=== PATIENT | male | born 1960 | race Caucasian/White ===

== ENCOUNTER 2019-01-19 12:37 | Emergency (ER) | payer MEDICAID, SELFPAY ==
[2019-01-19] VITALS (48 sets, daily range): BP systolic 121–202; BP diastolic 94–122; PULSE 57–85; RESP 10–22; TEMP 36.9; O2SAT 96–99
--- NOTE | 2019-01-19 13:02 | ED.GENADUL_ITS ---
Discharge Plan Disposition Patient Disposition: HOME Condition: Improving Discharge Details Chief Complaint: Chest Pain Clinical Impression: Hypertension, Atypical chest pain Primary Care Provider: Edyta Dee ED Provider: Patrice Panda Home Meds and New Rx's Prescriptions: No Action No Known Home Meds RF: 0 Discharge Instructions Instructions: Chest Pain (ED), Hypertension (ED) Additional Instructions: Please check your blood pressure at the same time of day in the outpatient setting as we discussed. Please call make an appointment to follow-up with Dr. Dee. You should limit daily sodium intake to between 1159-8106 mg/day. Please see enclosed information on low-sodium. Please consider decreasing your alcohol intake by 50%. Return for any acute concerns. Home to rest today Medical Decision Making 58-year-old male presents from home with his stating he has had 3 days of left-sided chest pain that radiates the back. It is constant, worse lying flat, but denies any association with shortness of breath, peripheral edema, no recent travel. He arrives with significant hypertension 194/105. Improved to 165/95 on recheck approximately 330pm. Her sinus is broad including ACS, PE, dissection. Patient placed on quality assurance monitor chassis, referred for laboratory testing and CT angiogram of the chest abdomen and pelvis. Patient laboratories are essentially unremarkable, troponin is negative and CBC within normal limits. CT without evidence of PE, dissection. He is observed on a quality assurance monitor chassis for approximately 4 hours and repeat troponin obtained & Patient's pain improved following administration of ketorolac. Patient states he has a history of hypertension, has trialed medications in the past and currently refuses to take regular antihypertensives. Discussed with him that he would benefit from decreasing his daily alcohol use, watching salt in the diet, and following up with Dr Dee for recheck. Lab Data Lab results reviewed: Yes I reviewed the patient's lab results. Laboratory Results - last 24 hr 01/19/19 01/19/19 01/19/19 13:02 13:02 13:02 WBC 7.88 RBC 4.88 Hgb 16.2 Hct 46.8 MCV 95.9 H MCH 33.2 H MCHC 34.6 RDW 13.1 Plt Count 200 MPV 11.3 H Immature Gran % 0.1 Neutrophils % 68.9 Lymphocytes % 16.1 Monocytes % 11.0 Eosinophils % 3.3 Basophils % 0.6 Absolute Neutrophils 5.42 Absolute Lymphocytes 1.27 Absolute Monocytes 0.87 H Absolute Eosinophils 0.26 Absolute Basophils 0.05 PT 9.7 INR 1.0 APTT 23.5 Sodium 138 Potassium 3.9 Chloride 104 Carbon Dioxide 24.2 Anion Gap 9.8 BUN 12 Creatinine 0.96 Estimated GFR/1.73 m2 >= 60.00 Glucose 102 H Calcium 9.3 Magnesium 1.8 Total Bilirubin 0.5 AST 22 ALT 33 Alkaline Phosphatase 102 Troponin I < 0.05 Total Protein 7.6 Albumin 4.0 ECG Data Attestation: I personally reviewed and interpreted this ECG (s) as follows: Interpretation: Normal sinus rhythm, no acute ST segment changes, QRS is narrow EKG #2 obtained at 1628 hrs. shows normal sinus rhythm with a rate of 61, the QRS is narrow, there is no ST segment elevation present HPI General Mode of arrival: ambulatory . Date/Time Provider Initiated Documentation: 01/19/19 12:48 . Limitations to Documentation: no limitations . Information obtained by: patient and family . History of Present Illness 58 yea r old M presents to the emergency department with the chief complaint of Left chest pain constant for 3 days, described as moderate, Quality is described as dull and constant, and is localized to the chest. Patient reports radiation to back. Patient started experiencing this day(s) and it has been constant. No relieving factors improve symptom(s), No exacerbating factors reported . Patient notes no other symptoms.; denies cough, fever/chills, headaches, nausea/vomiting and shortness of breath. Patient did receive the following treatments prior to arrival, none Related Data Home Medications Medication Instructions Recorded Confirmed Unknown [No Known Home Meds] 01/19/19 01/19/19 Allergies Allergy/AdvReac Type Severity Reaction Status Date / Time No Known Allergies Allergy Unverified 01/19/19 13:28 General Stated Complaint: Chest Pain LOY: 2 Review of Systems Review of Systems 8 systems reviewed and otherwise neg FORMERLY [facility], [facility] Social History Smoking/Tobacco Use Status: Current every day Alcohol Intake: current Alcohol Intake frequency: 0-2 drinks per day Drug use: Daily Substance use type: marijuana Do you feel safe at home: Yes Do you feel safe in your relationship?: Yes Exam Narrative Exam Narrative: GEN: awake, alert, oriented 3. Pleasant, well groomed, interactive. HEAD: Normocephalic, atraumatic ENT: Mucous membranes moist, oropharynx unremarkable, External ear exam unremarkable EYES: PERRL, EOMI NECK: Full ROM, no LILY, no menigismus CHEST/RESP: Nontender, clear to auscultation bilateral, no wheeze/rhonchi/rales CARDIOVASCULAR: RRR, no murmur, rub toi. 2+ Rad pulse bilateral ABDOMEN: Soft, nontender, no mass. +Bowel sounds EXT: Full ROM, no edema, no rash Neuro: Grossly normal neurologic exam, conversant, interactive. Psych: Speech fluent, thoughts congruent, affect normal Course Vital Signs Temperature 36.9 C 01/19/19 12:42 Pulse 64 01/19/19 12:42 Respiratory Rate 12 01/19/19 12:42 Blood Pressure 194/105 H 01/19/19 12:42 Pulse Oximetry 99 01/19/19 12:42 Temperature 36.9 C 01/19/19 12:42 Temperature Source Skin 01/19/19 12:42 Pulse 64 01/19/19 12:42 Respiratory Rate 12 01/19/19 12:42 Respiratory Effort Non-Labored 01/19/19 12:46 Blood Pressure 194/105 H 01/19/19 12:42 Blood Pressure Position Sitting 01/19/19 12:42 Pulse Oximetry 99 01/19/19 12:42 Oxygen Delivery Method Room Air 01/19/19 12:42 Oxygen Flow Rate 0 01/19/19 12:42 Pain Level 5 01/19/19 12:42
[2019-01-19] MEDS: Normal Saline Flush 10 ML SYR IVP ×2 (13:16→14:33)
[2019-01-19] MEDS: Normal Saline 1,000 ML 125 ML IV (13:16)
[2019-01-19 13:32] LABS: ALT 33 U/L (12-78); AST 22 U/L (15-37); Alkaline Phosphatase 102 U/L (46-116); Anion Gap 9.8 mmol/L (3-11); BUN 12 mg/dL (7-18); Bilirubin, Total 0.5 mg/dL (0.2-1.0); CO2 24.2 mmol/L (21.0-32.0); CREATININE 0.96 mg/dL (0.70-1.30); Calcium 9.3 mg/dL (8.5-10.1); Chloride 104 mmol/L (98-107); Glucose 102 mg/dL (70-100); Magnesium 1.8 mg/dL (1.8-2.4); PTT Activated 23.5 sec (21.0-31.4); Potassium 3.9 mmol/L (3.5-5.1); Prothrombin Time 9.7 sec (9.3-11.0); Sodium 138 mmol/L (136-145); Total Protein 7.6 g/dL (6.4-8.2); Troponin I < 0.05 ng/mL (0.00-0.06)
[2019-01-19 13:36] LABS: Abs Immature Grans 0.01 k/cumm (0.0-0.09); Absolute Basophil Count 0.05 k/cumm (0.0-0.2); Absolute Eosinophil Count 0.26 k/cumm (0.0-0.7); Absolute Lymphocyte Count 1.27 k/cumm (1.2-3.4); Absolute Monocyte Count 0.87 k/cumm (0.11-0.7); Absolute Neutrophil Count 5.42 k/cumm (1.2-6.7); Basophils % 0.6; Eosinophils % 3.3; HCT 46.8 % (40.0-50.0); HGB 16.2 g/dL (13.5-17.5); Immature Grans % 0.1; Lymphocytes % 16.1; Mean Corp. HGB Concentration 34.6 g/dL (32.0-36.0); Mean Corpuscular Hemoglobin 33.2 pg (27.0-33.0); Mean Corpuscular Volume 95.9 fL (80-95); Mean Platelet Volume 11.3 fL (8.0-11.0); Neutrophils % 68.9; Platelet Count 200 x1000/uL (130-400); RBC 4.88 m/cumm (4.50-6.00); RBC Distribution Width 13.1 % (11.8-14.1); White Blood Cell Count 7.88 k/cumm (4.4-10.8)
[2019-01-19] MEDS: Omnipaque 350 MG/ML 100 ML BTL IJ (14:07)
--- NOTE | 2019-01-19 14:11 | DI.CT_ITS ---
SYMPTOMS/DIAGNOSIS: HYPERTENSION, LT SIDED CHEST PAIN, HX OF OROPHARYNGEAL CANCER CT ANGIOGRAPHY CHEST AND ABDOMEN: CT angiography was performed with multi slice acquisition and multi planar and 3D reconstruction. CT Angiography of the chest and abdomen was performed with a bolus infusion of 100 cc's of Omnipaque 350. There is moderate generalized pulmonary centrilobar emphysematous change. The tracheobronchial tree appears intact. No consolidation. No pleural effusion. No mediastinal or hilar adenopathy. No axillary or supraclavicular adenopathy. No evidence of thoracic aortic aneurysm or dissection. The major branch vessels appear intact. No evidence of pulmonary embolic disease. The liver, spleen and pancreas appear normal. The adrenals and kidneys unremarkable with an incidental presumed 1.8 cm in diameter left renal cyst and a couple of small right renal cysts. The largest measuring about 15 mm in diameter. No evidence of urinary tract calcification or obstruction. No abdominal wall hernia seen. The appendix is normal. No evidence of bowel obstruction. The gallbladder and bile ducts are CT normal and pancreas appears normal. Moderate atheromatous calcification of the abdominal aorta noted. Incidental duplication of left renal arteries noted. No other significant abnormality seen involving the vascular structures. The urinary bladder is visible on the inferior most cut at the level of the sacrum, question urinary bladder enlargement/wall thickening. CONCLUSION: 1. No evidence of aortic dissection or pulmonary embolus. 2. Pulmonary centrilobar emphysematous changes noted. 3. Question urinary bladder enlargement/wall thickening, urinary bladder incompletely visualized.
[2019-01-19] MEDS: Ketorolac 30 MG/ML VIAL IVP (14:32)
[2019-01-19 14:43] LABS: Bilirubin Negative (Negative); Blood Negative (Negative); Clarity Clear (Clear); Glucose Negative (Negative); Ketones Negative (Negative); Leukocyte Esterase Negative (Negative); Nitrite Negative (Negative); Urobilinogen 0.2 EU/dL (Up TO 0.2)
[2019-01-19 17:03] LABS: Troponin I < 0.05 ng/mL (0.00-0.06)
== END 2019-01-19 17:14 | disposition home or self-care (01) ==
PROVIDERS: Emergency Provider Emergency Medicine; PCP Internal Medicine
DX: R07.89 Other chest pain (principal); I10 Essential (primary) hypertension; F17.210 Nicotine dependence, cigarettes, uncomplicated
CPT/HCPCS: 36415; 71275; 74175; 80053; 93005; 96361; 96374; 99285; 81003; 83735; 84484; 85025; 85610; 85730; 93010; J1885; J3490

== ENCOUNTER 2019-10-23 09:21 | Emergency (ER) | payer MEDICAID, SELFPAY ==
[2019-10-23 09:25] VITALS: BP 185/95; PULSE 75; RESP 16; TEMP 36.6; O2SAT 97
--- NOTE | 2019-10-23 09:48 | ED.GENADUL_ITS ---
Discharge Plan Disposition Patient Disposition: HOME Condition: Stable Discharge Details Chief Complaint: EarProblem Clinical Impression: Perforated eardrum Primary Care Provider: Edyta Dee ED Provider: Juan C Mendez Home Meds and New Rx's Prescriptions: New ofloxacin 0.3 % drops 10 drp OT Q12H 10 Days Qty: 10 RF: 0 Discharge Instructions Instructions: Ruptured Eardrum (ED) Additional Instructions: Ofloxacin as directed. Avoid any water in your ear. [id number] medications as Tylenol and/or Motrin as directed for discomfort. Please watch for new or worsening symptoms and return to the ER for any concerns. I have given you the name and number of our local ENT provider, contact your office later today for prompt outpatient reevaluation. Referrals: Elmer Kim DO [OSTEOPATHIC DOCTOR] - Discharge Data Discharge Date/Time-TO BE ENTERED AT DEPARTURE: 10/23/19 10:05 Medical Decision Making Traumatic left TM injury that occurred on . Examination is consistent with a left TM perforation, TM also with minimal erythema. As the patient is reporting increased discomfort over the last day or so, I do question of early infection is present. He is afebrile, no mastoid tenderness, no lymphadenopathy, no trismus. Will treat with topical ofloxacin drops and give ENT referral. Patient is comfortable this plan and has no additional questions or concerns Medical Records Medical records reviewed: Yes I reviewed the patient's medical records. HPI General Mode of arrival: ambulatory . Date/Time Provider Initiated Documentation: 10/23/19 09:28 . Limitations to Documentation: no limitations . Information obtained by: patient . HPI Narrative: This is a 59-year-old gentleman presenting with left eardrum injury. He reports that last he was cleaning his ear with a Q-tip, went to deep, believes that he went through his eardrum, Q-tip was bloody and he felt and heard a pop. He reports mild decreased hearing from that ear. He reports that he is getting some pain from the ear he does radiate down in front and below his ear as well. Denies any sore throat. Denies fever. Denies any current ear drainage. Related Data Home Medications Medication Instructions Recorded Confirmed ofloxacin 10 drp OT Q12H 10 Days #10 ml 10/23/19 Previous Rx's Medication Instructions Recorded ofloxacin 10 drp OT Q12H 10 Days #10 ml 10/23/19 Allergies Allergy/AdvReac Type Severity Reaction Status Date / Time No Known Allergies Allergy Unverified 10/23/19 09:31 General Stated Complaint: EarProblem LOY: 4 Review of Systems Constitutional Constitutional: Denies fever(s) and Denies headache(s) Eyes Eyes: Denies eye discharge ENT Ears, Nose, Mouth, and Throat: Denies headache(s) and Denies sore throat Cardiovascular Cardiovascular: Denies chest pain and Denies dyspnea Respiratory Respiratory: Denies cough and Denies dyspnea Integumentary/Breasts Skin/Breast: Denies rash Neurologic Neurologic: Denies headache(s) [facility] Social History Smoking/Tobacco Use Status: Current every day Alcohol Intake: current Alcohol Intake frequency: 0-2 drinks per day Drug use: Daily Substance use type: marijuana Do you feel safe at home: Yes Do you feel safe in your relationship?: Yes Exam Const General: cooperative, healthy appearing, comfortable and no acute distress Orientation: alert, awake and oriented x3 HENMT Head: normal to inspection, normocephalic and atraumatic Ears: hearing grossly normal bilaterally, external ears normal, TM normal on the right, EAC's normal, mastoids normal and TM abnormal erythematous and perforated (Pinhole, 6 o'clock position, dried bloody scab just superior) Mouth: moist mucous membranes Throat: posterior oropharynx normal Eyes Conjunctivae: conjunctivae normal Neck Neck: normal visual inspection, full ROM, no lymphadenopathy, trachea midline and supple Resp Effort & Inspection: normal respiratory effort and able to speak in complete sentences Auscultation: clear to auscultation bilaterally Cardio Rate: regular rate Rhythm: regular rhythm Skin General skin exam: no rashes or lesions noted Neuro General: patient alert, patient awake, moves all extremities and no focal motor deficits Sensory Exam: no sensory deficits noted Psych Appearance: grossly normal Mental Status: mental status grossly normal Course Vital Signs Vital signs: Vital Signs Temperature 36.6 C 10/23/19 09:25 Pulse 75 10/23/19 09:25 Respiratory Rate 16 10/23/19 09:25 Blood Pressure 185/95 H 10/23/19 09:25 Pulse Oximetry 97 10/23/19 09:25 Temperature 36.6 C 10/23/19 09:25 Temperature Source Skin 10/23/19 09:25 Pulse 75 10/23/19 09:25 Respiratory Rate 16 10/23/19 09:25 Respiratory Effort Non-Labored 10/23/19 09:25 Blood Pressure 185/95 H 10/23/19 09:25 Blood Pressure Position Sitting 10/23/19 09:25 Pulse Oximetry 97 10/23/19 09:25 Oxygen Delivery Method Room Air 10/23/19 09:25 Oxygen Flow Rate 0 10/23/19 09:25 Pain Level 5 10/23/19 09:31
--- NOTE | 2019-10-23 16:16 | NUR.NOTE ---
FAXED REFERRAL TO ENT Nursing Note:
== END 2019-10-23 10:05 | disposition home or self-care (01) ==
LOC: ER 09:56
PROVIDERS: Emergency Provider Physician Assistant; PCP Internal Medicine
DX: S09.22XA Traumatic rupture of left ear drum, initial encounter (principal); W26.8XXA Contact with other sharp object(s), not elsewhere classified, initial encounter
CPT/HCPCS: 99283

== ENCOUNTER 2024-12-20 20:04 | Emergency (ER) | payer MEDICARE, MEDICAID, SELFPAY ==
[2024-12-20] VITALS (20 sets, daily range): BP systolic 134–189; BP diastolic 83–102; PULSE 74–84; RESP 9–20; TEMP 36.1; O2SAT 93–100
--- NOTE | 2024-12-20 20:00 | RT.EKG_ITS ---
APPROVED REPORT Exam: Resting ECG Reason for Exam: SOB Patient Location: E HR:81 bpm ECG Measurements Heart Rate 81 AXIS MS 131 P 74 QRSd 100 QRS -39 QT 369 T 52 QTc 428 Conclusion Sinus rhythm...normal P axis, V-rate 60- 99 Probable left atrial enlargement...P >50mS, <-0.10mV V1 Left axis deviation...QRS axis (-30,-90)
--- NOTE | 2024-12-20 20:15 | DI.CT_ITS ---
Exam(s) CT CHEST PE CTA EXAM: CT CHEST PE CTA CLINICAL HISTORY: shortness of breath, ?PE. TECHNIQUE: Imaging Protocol: CT angiography of the chest was performed using pulmonary embolus protocol. Multi planar reconstructions were performed. CONTRAST MATERIAL: Intravenous: Omnipaque 350 Contrast volume: 7 the cc COMPARISON: No exams were available for comparison FINDINGS: CHEST: PULMONARY ARTERIES: There are no intraluminal filling defects to suggest acute pulmonary emboli. LUNGS: There are no infiltrates nor evidence of pulmonary infarction.. There are no pleural effusions. No ominous pulmonary nodules. MEDIASTINUM: There is no hilar nor mediastinal adenopathy. Visualized thyroid unremarkable. CARDIAC: Heart size is upper normal. There is no pericardial effusion.Caliber of the thoracic aorta is within normal limits. No evidence of dissection. There is no significant shift of the interventricular septum. PARTIALLY VISUALIZED UPPERMOST ABDOMEN: No significant adrenal masses. Benign exophytic cyst in the left kidney which does not require further imaging workup. OSSEOUS: No significant osseous lesions.No fractures. IMPRESSION: 1. No evidence of acute pulmonary emboli. No evidence of pulmonary infarction.No pleural effusions. RADIATION DOSE DELIVERED: 86.69mGy.cm Total DLP DATA REPOSITORY: All CT scans at this facility are submitted to the National Radiology Data Registry (NRDR) Dose Index Registry (DIR) with the [employer] ([employer]). RADIATION OPTIMIZATION: All CT scans at this facility use at least one of these dose optimization techniques: automated exposure control; mA and/or kV adjustment per patient size (includes targeted exams where dose is matched to clinical indication); or iterative reconstruction.
--- NOTE | 2024-12-20 20:19 | ED.GENADUL_ITS ---
Discharge Plan Disposition Patient Disposition: Home Condition: Stable Discharge Details Clinical Impression: Shortness of breath Primary Care Provider: Edyta Dee ED Provider: Milo Shankar Home Meds and New Rx's Prescriptions: New prednisone 20 mg tablet 60 mg PO DAILY 4 Days Qty: 12 0RF Continued cyclobenzaprine 10 mg tablet Patient Comments: TAKE ONE TABLET BY MOUTH THREE TIMES A DAY NEEDED triamcinolone acetonide 0.5 % cream TOPICAL Patient Comments: APPLY TOPICALLY TO AFFECTED AREA(S) TWO TIMES A DAY NEEDED metoprolol succinate 50 mg tablet extended release 24 hr PO Patient Comments: TAKE ONE TABLET BY MOUTH EVERY DAY meloxicam 7.5 mg tablet Patient Comments: TAKE ONE TABLET BY MOUTH TWICE A DAY NEEDED tamsulosin 0.4 mg capsule PO Patient Comments: TAKE TWO CAPSULES BY MOUTH EVERY DAY hydrochlorothiazide 25 mg tablet Patient Comments: TAKE ONE TABLET BY MOUTH EVERY DAY finasteride 5 mg tablet Discharge Instructions Additional Instructions: Your blood work and CAT scan did not show any concerning findings at this time. Your treated for bronchospasm. You can use the albuterol inhaler 2 puffs every 2-4 hours as needed. Follow-up with your primary care provider within 1 week and discuss if you should have testing to evaluate for COPD. If you feel more ill or feel significantly more short of breath return to the emergency department for reevaluation. HPI General Date/Time Provider Initiated Documentation: 12/20/24 20:07 . Limitations to Documentation: no limitations . Information obtained by: patient . History of Present Illness 64 year old M presents to the emergency department with the chief complaint of shortness of breath, cough, lightheaded, described as moderate, Patient started experiencing this week(s) (2) and it has been constant. Rest improves symptom(s), Movement worsens symptoms . Patient notes denies chest pain and fever/chills. Patient did receive the following treatments prior to arrival, none Related Data Home Medications ?Medication ?Instructions ?Recorded ?Confirmed cyclobenzaprine 10 mg tablet mg 12/20/24 finasteride 5 mg tablet mg 12/20/24 hydrochlorothiazide 25 mg tablet mg 12/20/24 meloxicam 7.5 mg tablet mg 12/20/24 metoprolol succinate 50 mg mg PO 12/20/24 tablet,extended release 24 hr prednisone 20 mg tablet 60 mg (3 x 20 mg) PO DAILY 4 days 12/20/24 #12 tabs tamsulosin 0.4 mg capsule mg PO 12/20/24 triamcinolone acetonide 0.5 % applic topical 12/20/24 topical cream Previous Rx's ?Medication ?Instructions ?Recorded prednisone 20 mg tablet 60 mg (3 x 20 mg) PO DAILY 4 days 12/20/24 #12 tabs Allergies Allergy/AdvReac Type Severity Reaction Status Date / Time No Known Allergies Allergy Unverified 12/20/24 20:10 General Stated Complaint: Dizzy/Sync LOY: 3 Review of Systems All systems reviewed & are unremarkable except as noted in HPI and below Constitutional Constitutional: Denies chills, Denies fever(s) and Denies weakness Cardiovascular Cardiovascular: Denies chest pain and Reports dyspnea Respiratory Respiratory: Reports cough and Reports dyspnea Gastrointestinal Gastrointestinal: Denies abdominal pain, Denies nausea and Denies vomiting Neurologic Neurologic: Denies weakness Exam Const General: no acute distress Orientation: alert HENMT Head: normal to inspection Ears: external ears normal General nose exam: external nose normal Mouth: moist mucous membranes Eyes General: appearance normal, both eyes and all related structures Neck Neck: normal visual inspection Resp Effort & Inspection: normal respiratory effort and able to speak in complete sentences Auscultation: rhonchi and wheezes Cardio Jugular venous pressure: no JVD Rate: regular rate Heart Sounds: no murmurs Skin General skin exam: no rashes or lesions noted Neuro General: patient alert and patient oriented x3 Extrem General: normal to inspection Psych Mental Status: mental status grossly normal Course Vital Signs Vital signs: Vital Signs Temperature 36.1 C L 12/20/24 20:05 Pulse 82 12/20/24 20:05 Respiratory Rate 18 12/20/24 20:05 Blood Pressure 155/100 H 12/20/24 20:05 Pulse Oximetry 98 12/20/24 20:05 Temperature 36.1 C L 12/20/24 20:05 Temperature Source Tympanic 12/20/24 20:05 Pulse 82 12/20/24 20:05 Respiratory Rate 18 12/20/24 20:05 Blood Pressure 155/100 H 12/20/24 20:05 Pulse Oximetry 98 12/20/24 20:05 Oxygen Delivery Method Room Air 12/20/24 20:05 Oxygen Flow Rate 0 12/20/24 20:05 Pain Level 0 12/20/24 20:05 Medical Decision Making 64-year-old male who was treated for oropharyngeal cancer in 2004 and is chronic smoker and drinks alcohol daily comes in with 1 to 2 weeks of shortness of breath with exertion and productive cough, also notes lightheadedness. Denies any chest pain or fever or chills. No abdominal pain or vomiting. He is speaking in full sentences on exam with intermittent cough. He has apical wheezing bilaterally and rhonchi at the bases bilaterally of his lungs. No murmurs or JVD, no leg swelling. I suspect he has undiagnosed COPD with his chronic smoking. Will treat his symptoms with a DuoNeb and Solu-Medrol. Will check CBC, CMP and troponins. Also obtain CTA of chest to evaluate for PE versus infiltrates. Patient feels better after neb and has improved lung sounds. Has apical wheezing so we will order another neb. Blood work including delta troponin negative. Awaiting CTA read CTA negative and patient feels well and asymptomatic. I am going to prescribe him prednisone for few more days and also an albuterol inhaler to take home. He will follow-up with his PCP and return precautions given Differential Diagnosis Differential Diagnosis: COPD, pneumonia, ACS, NSTEMI Lab Data Lab results reviewed: Yes I reviewed the patient's lab results. ECG Data Attestation: I personally reviewed and interpreted this ECG (s) as follows: Prior ECG tracings: available for review Interpretation: sinus rate of 81 no stemi PFSH All Active Problems (Updated 12/20/24 @ 22:15 by Milo Shankar MD) Shortness of breath (Acute) Sensory hearing loss, bilateral (Acute) Daily consumption of alcohol (Acute) Smoker (Acute) Oropharyngeal cancer (Acute) Unspecified injury of ear, initial encounter (Acute) Social History Smoking/Tobacco Use Status: Current every day Smoking risk assessment performed?: Yes Alcohol Intake: current Alcohol Intake frequency: 0-2 drinks per day Drug use: Daily Substance use type: marijuana Do you feel safe at home: Yes Do you feel safe in your relationship?: Yes
[2024-12-20] MEDS: Albuterol/Ipratropium 3 ML UPD VIAL UPD ×2 (20:27→21:30)
[2024-12-20] MEDS: methylPREDNISolone SUCC 125 MG VIAL IVP (20:27)
[2024-12-20 20:31] LABS: BE (Venous) 1 mmol/L (-2-3); HCO3 (Venous) 26 mmol/L (23-28); O2 Sat (Venous) 64 %; TCO2 (Venous) 22 mmol/L (24-29); pCO2 (Venous) 41 mmHg (41-51); pO2 (Venous) 34 mmHg
[2024-12-20 20:33] LABS: Abs Immature Grans 0.02 10^3/uL (0.0-0.06); HCT 44.4 % (40.0-50.0); HGB 15.6 g/dL (13.5-17.5); Immature Grans % 0.2 %; MCH 33.0 pg (27.0-33.0); MCHC 35.1 % (32.0-36.0); MCV 94 fL (80-95); MPV 9.6 fL (8.0-11.0); Platelet Count 260 10^3/uL (130-400); RBC 4.73 10^6/uL (4.36-5.78); RDW 12.6 % (11.8-14.1); RDW-SD 43.6 fL; WBC 8.80 10^3/uL (4.4-10.8)
[2024-12-20 20:55] LABS: Troponin I 6 ng/L (<or=76)
[2024-12-20 21:00] LABS: ALT 33 U/L (16-63); AST 23 U/L (15-37); Albumin 4.1 g/dL (3.4-5.0); Alkaline Phosphatase 125 U/L (46-116); Anion Gap 9.6 mmol/L (3-11); BUN 11 mg/dL (7-18); Bilirubin, Total 0.6 mg/dL (0.2-1.0); CO2 26.4 mmol/L (21.0-32.0); Calcium 9.8 mg/dL (8.5-10.1); Chloride 99 mmol/L (98-107); Estimated GFR 74.50 (mL/min/1.73m2); Glucose 94 mg/dL (74-106); Magnesium 2.1 mg/dL (1.8-2.4); NT-proBNP 168 pg/mL (<300); Potassium 4.0 mmol/L (3.5-5.1); Sodium 135 mmol/L (136-145); TSH (W/Ref FT4) 5.83 uIU/mL (0.36-3.74); Total Protein 8.1 g/dL (6.4-8.2)
[2024-12-20 21:12] LABS: Glucose Negative (Negative)
[2024-12-20] MEDS: Omnipaque 350 MG/ML 100 ML BTL 70 ML IJ (21:13)
[2024-12-20] MEDS: Normal Saline - Diluent 50 ML VIAL IJ (21:14)
[2024-12-20 21:18] LABS: RBC Negative HPF (0-2)
[2024-12-20 21:19] LABS: C & S Indicated? No
--- NOTE | 2024-12-20 22:02 | DI.VRAD_ITS ---
PROCEDURE INFORMATION: Exam: CTA Chest With Contrast Exam date and time: 12/20/2024 9:04 PM Age: 64 years old Clinical indication: Other: Shortness of breath, ? pe TECHNIQUE: Imaging protocol: Computed tomographic angiography of the chest with contrast. Exam focused on the arteries. 3D rendering (Not supervised by radiologist): MIP and/or 3D reconstructed images were created by the technologist. Contrast material: OMNIPAQUE 350; Contrast volume: 70 ml; Contrast route: INTRAVENOUS (IV); COMPARISON: CT thorax abdomen CTA 01/19/2019 1:58 PM FINDINGS: Pulmonary arteries: Normal. No pulmonary emboli. Aorta: Aorta demonstrates mild atherosclerotic calcification. No aortic aneurysm or dissection. Lungs: Unremarkable. No consolidation. No masses. Pleural spaces: Unremarkable. No pneumothorax. No pleural effusion. Heart: Unremarkable. No cardiomegaly. No pericardial effusion. Coronary arteries: Coronary artery calcifications. Lymph nodes: Unremarkable. No enlarged lymph nodes. Bones/joints: Unremarkable. No acute fracture. Soft tissues: Unremarkable. IMPRESSION: No pulmonary embolism identified. Dictated and Authenticated by: Carlos Cabezas MD. Orderin Vonnie Pedraza MD
[2024-12-20 22:06] LABS: Troponin I 5 ng/L (<or=76)
[2024-12-20] MEDS: Albuterol HFA 8 GM 60 PUFF INH IH (22:20)
== END 2024-12-20 22:25 | disposition home or self-care (01) ==
LOC: ER 22:17
PROVIDERS: Emergency Provider Emergency Medicine; PCP Internal Medicine
DX: R06.02 Shortness of breath (principal); R05.1 Acute cough; R42 Dizziness and giddiness; F17.210 Nicotine dependence, cigarettes, uncomplicated
CPT/HCPCS: 99284; 99285; 96374; 94640; 36415; 71275; 80053; 82805; 93005; 80320; 81003; 81015; 83735; 83880; 84439; 84443; 84484; 85025; 93010; J2919; J3490; J7620

== ENCOUNTER 2025-01-16 08:49 | Emergency (ER) | payer MEDICARE, MEDICAID, SELFPAY ==
[2025-01-16] VITALS (25 sets, daily range): BP systolic 97–212; BP diastolic 72–140; PULSE 59–78; RESP 11–29; TEMP 36.9; O2SAT 97–100
--- NOTE | 2025-01-16 08:45 | RT.EKG_ITS ---
APPROVED REPORT Exam: Resting ECG Reason for Exam: dizziness Patient Location: E HR:65 bpm ECG Measurements Heart Rate 65 AXIS OR 134 P 63 QRSd 100 QRS -30 QT 383 T 55 QTc 399 Conclusion Sinus rhythm...normal P axis, V-rate 60- 99 Left axis deviation...QRS axis (-30,-90) Sinus Rhythm, left axis deviation. No significant change from prior 12/20/24. WD
--- NOTE | 2025-01-16 09:00 | DI.RAD_ITS ---
Exam(s) XR CHEST 2V PA LATERAL EXAM: XR CHEST 2V PA LATERAL CLINICAL HISTORY: dizziness TECHNIQUE: 2D digital imaging was performed of the chest. Two images were obtained. PA and lateral views were obtained. COMPARISON: CT CT CHEST PE CTA from 12/20/2024 FINDINGS: MEDIASTINUM: Normal. HEART: Normal. PULMONARY VASCULATURE: Normal. LUNGS: Clear. PLEURAL SPACE: No pleural effusion or pneumothorax. BONE:Within normal limits for the patient's age. OTHER FINDINGS:Normal. IMPRESSION: No acute pulmonary findings. DATA REPOSITORY: RADIATION DOSE DELIVERED:
[2025-01-16 09:17] LABS: Abs Immature Grans 0.02 10^3/uL (0.0-0.06); HCT 43.8 % (40.0-50.0); HGB 15.1 g/dL (13.5-17.5); Immature Grans % 0.3 %; MCH 33.5 pg (27.0-33.0); MCHC 34.5 % (32.0-36.0); MCV 97 fL (80-95); MPV 10.2 fL (8.0-11.0); Platelet Count 208 10^3/uL (130-400); RBC 4.51 10^6/uL (4.36-5.78); RDW 13.2 % (11.8-14.1); RDW-SD 47.8 fL; WBC 6.90 10^3/uL (4.4-10.8)
[2025-01-16 09:19] LABS: ESR 4 mm/hr (0-20)
[2025-01-16] MEDS: Omnipaque 350 MG/ML 100 ML BTL IJ (09:32)
[2025-01-16] MEDS: Normal Saline - Diluent 50 ML VIAL IJ (09:33)
[2025-01-16 09:44] LABS: ALT 30 U/L (16-63); AST 21 U/L (15-37); Albumin 3.8 g/dL (3.4-5.0); Alkaline Phosphatase 110 U/L (46-116); Anion Gap 3.9 mmol/L (3-11); BUN 9 mg/dL (7-18); Bilirubin, Total 0.4 mg/dL (0.2-1.0); C-Reactive Protein < 0.50 mg/dL (<or=0.5); CO2 30.1 mmol/L (21.0-32.0); Calcium 9.6 mg/dL (8.5-10.1); Chloride 101 mmol/L (98-107); Estimated GFR 74.50 (mL/min/1.73m2); Glucose 123 mg/dL (74-106); Lipase 74 U/L (<78); Magnesium 2.2 mg/dL (1.8-2.4); Potassium 4.9 mmol/L (3.5-5.1); Sodium 135 mmol/L (136-145); TSH (W/Ref FT4) 3.16 uIU/mL (0.36-3.74); Total Protein 7.3 g/dL (6.4-8.2); Troponin I 7 ng/L (<or=76)
--- NOTE | 2025-01-16 09:45 | DI.CT_ITS ---
Exam(s) CT BRAIN NECK CTA EXAM: CT BRAIN NECK CTA CLINICAL HISTORY: vision changes, dizziness. TECHNIQUE: Imaging Protocol: Axial CT angiography was performed with multi- slice acquisition and multi-planar and/or 3D reconstructions. CONTRAST MATERIAL: Intravenous: Omnipaque 350 contrast volume:70 mL COMPARISON: No exams were available for comparison FINDINGS: CT Head W/O and W: Ventricles and Extra axial spaces: Normal in size and morphology for the patient's age. Hemorrhage: None. Cerebral parenchyma: There are areas of decreased attenuation in the white matter consistent with chronic microvascular ischemic disease. There is a lacunar infarct on the left. It involves the left higgins radiata and the left lentiform nucleus. There is no acute mass effect. Midline shift: None. Brainstem/Cerebellum: Normal. Calvarium: Normal. Visualized Paranasal sinuses/Mastoids: There is mild mucosal thickening in the visualized paranasal sinuses. The mastoid air cells are clear. Soft Tissues: Unremarkable. Enhancement: Unremarkable. CTA Neck W: Common Carotid: Right: There is occlusion of the right common carotid artery throughout its entire length. Left: There is atherosclerotic disease in the left common carotid artery with severe stenosis (greater than 90 percent) in the mid common carotid artery for approximately 3 cm. External Carotid: Right: There is significant stenosis at the origin of the right external carotid artery. Left: No occlusion or significant stenosis. Internal Carotid: Right: There is reconstitution of the right internal carotid artery with severe stenosis proximally (80-90 percent. Left: No dissection, occlusion or significant stenosis. Vertebral Artery: Right: No dissection, occlusion or significant stenosis. Left: No dissection, occlusion or significant stenosis. Lung Apices: Mild centrilobular emphysematous changes are present. Bones: There is reversal of the normal cervical lordosis. Marked degenerative changes are seen throughout the cervical spine. Soft Tissues: Normal. Thyroid gland: Unremarkable. CTA Brain W: Internal Carotid Arteries: Atherosclerotic calcification is present bilaterally in the cavernous portion of the internal carotid arteries. No significant stenosis is seen. Anterior Cerebral Arteries: Right: No aneurysm, occlusion or significant stenosis. Left: No aneurysm, occlusion or significant stenosis. Middle Cerebral Arteries: Right: No aneurysm, occlusion or significant stenosis. Left: No aneurysm, occlusion or significant stenosis. Posterior Cerebral Arteries: Right: No aneurysm, occlusion or significant stenosis. Left: No aneurysm, occlusion or significant stenosis. Vertebral Arteries: Right: No aneurysm, occlusion or significant stenosis. Left: No aneurysm, occlusion or significant stenosis. Basilar Artery: No aneurysm, occlusion or significant stenosis. IMPRESSION: 1. Complete occlusion of the right common carotid artery through its entire length. There is reconstitution of the right internal carotid artery at the level of the carotid bifurcation. There is 80-90 percent stenosis of the proximal right internal carotid artery. 2. There is severe stenosis in the mid left common carotid artery. This measures approximately 3 cm in length. 3. No acute intracranial process. On MRI of the head may be obtained if there is continued concern for an acute infarct. 4. Atherosclerotic calcification of the cavernous portions of the internal carotid arteries is seen bilaterally. No significant stenosis is present. RADIATION DOSE DELIVERED: 2,378.81mGy.cm Total DLP DATA REPOSITORY: All CT scans at this facility are submitted to the National Radiology Data Registry (NRDR) Dose Index Registry (DIR) with the [employer] ([employer]). RADIATION OPTIMIZATION: All CT scans at this facility use at least one of these dose optimization techniques: automated exposure control; mA and/or kV adjustment per patient size (includes targeted exams where dose is matched to clinical indication); or iterative reconstruction.
[2025-01-16 10:38] LABS: Glucose Negative (Negative)
--- NOTE | 2025-01-16 10:41 | ED.GENADUL_ITS ---
Discharge Plan Discharge Details Chief Complaint: Dizzy/Sync Primary Care Provider: Edyta Dee ED Provider: Arsen Almanzar Home Meds and New Rx's Prescriptions: No Action cyclobenzaprine 10 mg tablet 10 mg PO TID PRN Patient Comments: TAKE ONE TABLET BY MOUTH THREE TIMES A DAY NEEDED triamcinolone acetonide 0.5 % cream 1 applic TOPICAL BID PRN Patient Comments: APPLY TOPICALLY TO AFFECTED AREA(S) TWO TIMES A DAY NEEDED metoprolol succinate 50 mg tablet extended release 24 hr 50 mg PO DAILY Patient Comments: TAKE ONE TABLET BY MOUTH EVERY DAY meloxicam 7.5 mg tablet 7.5 mg PO BID PRN Patient Comments: TAKE ONE TABLET BY MOUTH TWICE A DAY NEEDED tamsulosin 0.4 mg capsule 0.8 mg PO DAILY Patient Comments: TAKE TWO CAPSULES BY MOUTH EVERY DAY hydrochlorothiazide 25 mg tablet 25 mg PO DAILY Patient Comments: TAKE ONE TABLET BY MOUTH EVERY DAY finasteride 5 mg tablet 5 mg PO DAILY HPI General Date/Time Provider Initiated Documentation: 01/16/25 08:57 . HPI Narrative: 64 year-old male presents to ED today by POV/ambulating with his friend with a chief complaint of increasing frequency of falls- one fall last night with mild bruising to R side of his face, gait abnormalities, L sided visual deficits for months- but not currently with onset over time. Patient has known carotid disease and has seen [facility] but never followed up with elective procedures. Quality described as not overly painful- just has difficulty with balance and falls, no radiation to headache, pulsatile tinnitus, cough, sh ortness of breath, palpitations, chest pain, syncope. Severity is described as severe for balance issues. Palliating factors include nothing specific. Provoking factors include nothing specific. Events leading up to the incident/Associated Symptoms: Patient has history of alcohol use. Patient not anticoagulated. Related Data Home Medications ?Medication ?Instructions ?Recorded ?Confirmed cyclobenzaprine 10 mg tablet 10 mg PO TID PRN 12/20/24 01/16/25 Held on 01/16/25. Instructions: Pt Stopped/Never Started finasteride 5 mg tablet 5 mg PO DAILY 12/20/2401/16 Held on 01/16/25. Instructions: Pt Stopped/Never Started hydrochlorothiazide 25 mg tablet 25 mg PO DAILY 01/16/25 Held on 01/16/25. Instructions: Pt Stopped/Never Started meloxicam 7.5 mg tablet 7.5 mg PO BID PRN 12/20/24 0 01/16/25 Held on 01/16/25. Instructions: Pt Stopped/Never Started metoprolol succinate 50 mg 50 mg PO DAILY 12/20/2411/05 tablet,extended release 24 hr tamsulosin 0.4 mg capsule 0.8 mg PO DAILY 12/20/2411/05 triamcinolone acetonide 0.5 % 1 applic topical BID PRN 12/20/24 01/16/25 topical cream Held on 01/16/25. Instructions: Pt Stopped/Never Started Allergies Allergy/AdvReac Type Severity Reaction Status Date / Time No Known Allergies Allergy Unverified 01/16/25 09:04 General Stated Complaint: Dizzy/Sync LOY: 2 Exam Narrative Exam Narrative: GENERAL APPEARANCE: Well-nourished, non-toxic, awake and alert, atraumatic, no acute distress. SKIN: Warm, pink, dry, intact, without rashes/lesions/ulcerations. HEAD: Normocephalic, mild ecchymosis to right side of face, forehead, stable zygomatic arch without crepitus, full motion of jaw, normal hair distribution for gender/age. EYES: Normal conjunctiva, no exudates on lids/lashes, visual martinez intact, vision grossly intact, pupils PERRLA, EOMs intact without nystagmus ENT: Nares patent, no circumoral cyanosis, no facial swelling NECK: Supple, trachea midline, painless cervical ROM. LUNGS/CHEST: Lungs CTA bilaterally- no rhonchi/rales/wheezes diffusely, non- labored respirations, normal A/P diameter, symmetrical expansion, no chest wall deformity HEART (CV/PV): Regular rate and rhythm without murmur, no peripheral edema, no JVD. ABDOMEN: Soft, non-distended, no guarding, no tenderness. MSK: Normal ROM, no swelling/deformity to bilateral UEs or LEs, moving all extremities without weakness, no cyanosis, spine midline without tenderness, normal curvature. NEURO: Mental Status AAOx4 - alert to person, place, time, events No facial droop, no forehead involvement, no dysmetria finger -nose-finger Motor: No focal weakness - strength 5/5 in bilateral UEs and LEs, proximal and distal, symmetric. Sensory: sensation intact to light touch globally. Gait unsteady diffusely, no obvious ataxia PSYCH: euthymic, cooperative, pleasant, appropriate speech Course Vital Signs Vital signs: Vital Signs Temperature 36.9 C 01/16/25 08:52 Pulse 78 01/16/25 08:52 Respiratory Rate 16 01/16/25 08:52 Blood Pressure 204/98 H 01/16/25 08:52 Pulse Oximetry 97 01/16/25 08:52 Temperature 36.9 C 01/16/25 08:52 Temperature Source Oral 01/16/25 08:52 Pulse 63 01/16/25 10:21 Pulse 63 01/16/25 10:21 Respiratory Rate 14 01/16/25 10:21 Respiratory Effort Normal 01/16/25 08:55 Respiratory Depth Normal 01/16/25 08:55 Respiratory Pattern Normal 01/16/25 08:55 Blood Pressure 193/116 H 01/16/25 10:21 Blood Pressure Mean 139 01/16/25 10:21 Pulse Oximetry 98 01/16/25 10:21 Oxygen Delivery Method Room Air 01/16/25 08:52 Oxygen Flow Rate 0 01/16/25 08:52 Lab/Test Results Lab/Test Results: Laboratory Tests Range/Units 01/16/25 09:05 WBC (4.4-10.8) 10^3/uL 6.90 RBC (4.36-5.78) 10^6/uL 4.51 Hgb (13.5-17.5) g/dL 15.1 Hct (40.0-50.0) % 43.8 MCV (80-95) fL 97 H MCH (27.0-33.0) pg 33.5 H MCHC (32.0-36.0) % 34.5 RDW (11.8-14.1) % 13.2 Plt Count (130-400) 10^3/uL 208 MPV (8.0-11.0) fL 10.2 Immature Gran % % 0.3 Neutrophils % % 65.8 Lymphocytes % % 17.4 Monocytes % % 11.2 Eosinophils % % 4.1 Basophils % % 1.2 Nucleated RBC % (0.0-0.3) % 0.0 Absolute Neutrophils (1.2-6.7) 10^3/uL 4.55 Absolute Lymphocytes (1.2-3.4) 10^3/uL 1.20 Absolute Monocytes (0.1-0.8) 10^3/uL 0.77 Absolute Eosinophils (0.0-0.7) 10^3/uL 0.28 Absolute Basophils (0.0-0.2) 10^3/uL 0.08 ESR (0-20) mm/hr 4 Sodium (136-145) mmol/L 135 L Potassium (3.5-5.1) mmol/L 4.9 Chloride (98-107) mmol/L 101 Carbon Dioxide (21.0-32.0) mmol/L 30.1 Anion Gap (3-11) mmol/L 3.9 BUN (7-18) mg/dL 9 Creatinine (0.70-1.30) mg/dL 1.1 Est GFR (CKD-EPI 2020) (mL/min/1.73m2) 74.50 Glucose (74-106) mg/dL 123 H Calcium (8.5-10.1) mg/dL 9.6 Magnesium (1.8-2.4) mg/dL 2.2 Total Bilirubin (0.2-1.0) mg/dL 0.4 AST (15-37) U/L 21 ALT (16-63) U/L 30 Alkaline Phosphatase (46-116) U/L 110 Troponin I (<or=76) ng/L 7 C-Reactive Protein (<or=0.5) mg/dL < 0.50 Total Protein (6.4-8.2) g/dL 7.3 Albumin (3.4-5.0) g/dL 3.8 Lipase (<78) U/L 74 TSH (0.36-3.74) uIU/mL 3.16 Ethyl Alcohol (<10) mg/dL < 3.0 Medical Decision Making This dictation utilizes [id number] dictation software and may contain unedited grammatical errors. 64 year-old male presents to ED today by POV/ambulating with his friend with a chief complaint of increasing frequency of falls- one fall last night with mild bruising to R side of his face, gait abnormalities, L sided visual deficits for months- but not currently with onset over time. Patient has known carotid disease and has seen [facility] but never followed up with elective procedures. Quality described as not overly painful- just has difficulty with balance and falls, no radiation to headache, pulsatile tinnitus, cough, shortness of breath, palpitations, chest pain, syncope. Severity is described as severe for balance issues. Palliating factors include nothing specific. Provoking factors include nothing specific. Events leading up to the incident/Associated Symptoms: Patient has history of alcohol use. Patients' medical history: Daily consumption of alcohol, history of oropharyngeal cancer, known carotid disease. Family and social history: Denies current intoxication, constant home independently, 3 years ago. Pertinent exam findings / vital signs include unsteady gait, mild ecchymosis to right side of face with intact zygomatic arch without crepitus, no slurred speech, no broken teeth, no midline cervical vertebral tenderness, benign ca rdiopulmonary exam, vision grossly intact, visual martinez intact, benign cardiopulmonary exam. Differential / pathologies of concern include stroke, vertebral dissection, vertigo, debility, alcoholic neuropathy, malignancy, GCA. Diagnostic studies of: - CTA brain and neck, MRI brain and neck, carotid, x-ray chest, EKG, CBC, CMP, CRP/ESR, magnesium, lipase, TSH, alcohol level, troponin. - CTA shows complete occlusion of the right common carotid with severe 80 to 90% occlusion of the right ICA, shows severe stenosis of the left common carotid - X-ray chest shows no acute pathology, MRI brain shows an old lacunar infarct and no acute stroke - Ultrasound carotid confirm CT findings - CBC is benign, CMP shows no actionable abnormality, troponin negative, CRP/ESR negative, lipase negative, TSH within normal limits, alcohol level negative - EKG without ischemic changes, normal axis, normal intervals, Good R wave progression, no ST changes of ischemia Interventions of: - [facility] teleneurology visit shows no acute stroke, normal exam, they recommend he start aspirin, statin milligram daily, consult with vascular surgery, perform MRI and admitted positive findings. - [facility] vascular surgery consult pending at time of sign-out ED Course/Assessment/Plan: 64 y/o M presents with frequent falls, known severe carotid disease, history of alcohol use. History of oropharyngeal cancer- consider mets. Workup is negative for stroke, [facility] teleneuro performed. Awaiting [facility] vascular surgery consult for bilateral severe carotid disease. Patient has been otherwise stable. Emergency department, MRI was performed shows no stroke, with vascular surgery's blessing he could likely follow-up in the outpatient setting but does need an echocardiogram soon, patient signed out to Casie Ling NP with pending vascular surgery consult. Disposition of Severe Carotid Stenosis, Multiple Falls. Patient verbalized understanding of the plan and return to ED criteria and engaged in shared decision making. Medical Records Medical records reviewed: Yes I reviewed the patient's medical records. Imaging Data Radiologic Study: Attestation: I personally reviewed and interpreted this imaging study as follows: Imaging: CT Scan Radiologist's impression: EXAM: CT BRAIN NECK CTA CLINICAL HISTORY: vision changes, dizziness. TECHNIQUE: Imaging Protocol: Axial CT angiography was performed with multi- slice acquisition and multi-planar and/or 3D reconstructions. CONTRAST MATERIAL: Intravenous: Omnipaque 350 contrast volume:70 mL COMPARISON: No exams were available for comparison FINDINGS: CT Head W/O and W: Ventricles and Extra axial spaces: Normal in size and morphology for the patient's age. Hemorrhage: None. Cerebral parenchyma: There are areas of decreased attenuation in the white matter consistent with chronic microvascular ischemic disease. There is a lacunar infarct on the left. It involves the left higgins radiata and the left lentiform nucleus. There is no acute mass effect. Midline shift: None. Brainstem/Cerebellum: Normal. Calvarium: Normal. Visualized Paranasal sinuses/Mastoids: There is mild mucosal thickening in the visualized paranasal sinuses. The mastoid air cells are clear. Soft Tissues: Unremarkable. Enhancement: Unremarkable. CTA Neck W: Common Carotid: Right: There is occlusion of the right common carotid artery throughout its entire length. Left: There is atherosclerotic disease in the left common carotid artery with severe stenosis (greater than 90 percent) in the mid common carotid artery for approximately 3 cm. External Carotid: Right: There is significant stenosis at the origin of the right external carotid artery. Left: No occlusion or significant stenosis. Internal Carotid: Right: There is reconstitution of the right internal carotid artery with severe stenosis proximally (80-90 percent. Left: No dissection, occlusion or significant stenosis. Vertebral Artery: Right: No dissection, occlusion or significant stenosis. Left: No dissection, occlusion or significant stenosis. Lung Apices: Mild centrilobular emphysematous changes are present. Bones: There is reversal of the normal cervical lordosis. Marked degenerative changes are seen throughout the cervical spine. Soft Tissues: Normal. Thyroid gland: Unremarkable. CTA Brain W: Internal Carotid Arteries: Atherosclerotic calcification is present bilaterally in the cavernous portion of the internal carotid arteries. No significant stenosis is seen. Anterior Cerebral Arteries: Right: No aneurysm, occlusion or significant stenosis. Left: No aneurysm, occlusion or significant stenosis. Middle Cerebral Arteries: Right: No aneurysm, occlusion or significant stenosis. Left: No aneurysm, occlusion or significant stenosis. Posterior Cerebral Arteries: Right: No aneurysm, occlusion or significant stenosis. Left: No aneurysm, occlusion or significant stenosis. Vertebral Arteries: Right: No aneurysm, occlusion or significant stenosis. Left: No aneurysm, occlusion or significant stenosis. Basilar Artery: No aneurysm, occlusion or significant stenosis. IMPRESSION: 1. Complete occlusion of the right common carotid artery through its entire length. There is reconstitution of the right internal carotid artery at the level of the carotid bifurcation. There is 80-90 percent stenosis of the proximal right internal carotid artery. 2. There is severe stenosis in the mid left common carotid artery. This measures approximately 3 cm in length. 3. No acute intracranial process. On MRI of the head may be obtained if there is continued concern for an acute infarct. 4. Atherosclerotic calcification of the cavernous portions of the internal carotid arteries is seen bilaterally. No significant stenosis is present. Radiologic Study #2: Attestation: I personally reviewed and interpreted this imaging study as follows: Imaging: MRI Radiologist's impression: EXAM: MR BRAIN WO CLINICAL HISTORY: R common carotid occlusion TECHNIQUE: Multiplanar multisequence MRI of the brain was performed. COMPARISON: CT CT BRAIN NECK CTA from 01/16/2025 FINDINGS: The examination is limited due to patient motion artifact. VENTRICLES AND EXTRA AXIAL SPACES: Normal in size and morphology for the patient's age. MIDLINE SHIFT: None. CEREBRAL PARENCHYMA: No focus of restricted diffusion to suggest acute infarct. No space-occupying lesion identified. There are several areas of hyperintense signal seen on the T2 and FLAIR images in the white matter consistent with chronic microvascular ischemic disease. There is a old lacunar infarct in the left higgins radiata. HEMORRHAGE: None. BRAINSTEM/CEREBELLUM: Normal. CALVARIUM: Normal. VISUALIZED PARANASAL SINUSES/MASTOIDS:Clear. [place]: There is loss of the flow void in the right internal carotid artery. This may represent slow flow. The vessel is shown to be patent on the CT scan of the head and neck from earlier in the day. PITUITARY GLAND: Unremarkable. OTHER FINDINGS: None. IMPRESSION: 1. There is no evidence of an acute territorial infarct. 2. Old lacunar infarct in the left higgins radiata and chronic microvascular ischemic disease. Radiologic Study #3: Attestation: I personally reviewed and interpreted this imaging study as follows: Imaging: Ultrasound Radiologist's impression: EXAM: US CAROTID CLINICAL HISTORY: R common carotid occlusion. TECHNIQUE: Ultrasound carotids performed using grayscale, color-flow, and spectral Doppler imaging. COMPARISON: CT CT BRAIN NECK CTA from 01/16/2025 MR MR BRAIN WO from 01/16/2025 FINDINGS: RIGHT CAROTID ARTERY: Plaque: Calcific plaque is present throughout. Velocity elevation: No discernible blood flow is seen in the right common carotid artery. Low velocity flow is seen in the carotid bulb and the proximal right ICA. Blood flow could not be obtained in the mid or distal right internal carotid artery. LEFT CAROTID ARTERY: Plaque: Calcific plaque is seen throughout. Velocity elevation: Yes. There is marked elevation of the velocities seen in the left common carotid artery. There is marked stenosis and atherosclerosis present. There is marked elevation of velocity in the mid left internal carotid artery. VERTEBRAL ARTERIES: Antegrade flow. Measurements: R Bulb: 23.3cm/s PS / 9.8cm/s ED R CCA: PS / ED R ECA: PS / ED R ICA Prox: 19.3cm/s PS / 5.9cm/s ED R ICA Mid: PS / ED R ICA Distal: PS / ED R Vert: 15.5cm/s PS / 0cm/s ED R SVR: R DVR: L Bulb: 127.6cm/s PS / 60.1cm/s ED L CCA: PS / 155.9cm/s ED L ECA: 142cm/s PS / 44cm/s ED L ICA Prox: 116.4cm/s PS / 49.5cm/s ED L ICA Mid: 425.2cm/s PS / 137.1cm/s ED L ICA Distal: 146.6cm/s PS / 53.8cm/s ED L Vert: 242.4cm/s PS / 98.2cm/s ED L SVR: 0.8 L DVR: 0.9 IMPRESSION: 1. Findings consistent with occlusion of the right common carotid artery. 2. Minimal blood flow is seen in the proximal right ICA and carotid bulb. These findings are consistent with the CT scan of the head and neck performed on the same day. 3. Marked stenosis seen in the left common carotid artery with marked elevation of the velocities noted. 4. Marked elevation of the left internal carotid artery consistent with near total occlusion. These findings are consistent with what was seen on the CT scan of the head and neck performed on the same day. Radiologic Study #4: Attestation: I personally reviewed and interpreted this imaging study as follows: Imaging: X-Ray Radiologist's impression: EXAM: XR CHEST 2V PA LATERAL CLINICAL HISTORY: dizziness TECHNIQUE: 2D digital imaging was performed of the chest. Two images were obtained. PA and lateral views were obtained. COMPARISON: CT CT CHEST PE CTA from 12/20/2024 FINDINGS: MEDIASTINUM: Normal. HEART: Normal. PULMONARY VASCULATURE: Normal. LUNGS: Clear. PLEURAL SPACE: No pleural effusion or pneumothorax. BONE:Within normal limits for the patient's age. OTHER FINDINGS:Normal. IMPRESSION: No acute pulmonary findings. Lab Data Lab results reviewed: Yes I reviewed the patient's lab results. Labs: Laboratory Tests Range/Units 01/16/ 09:05 WBC (4.4-10.8) 10^3/uL 6.90 RBC (4.36-5.78) 10^6/uL 4.51 Hgb (13.5-17.5) g/dL 15.1 Hct (40.0-50.0) % 43.8 MCV (80-95) fL 97 H MCH (27.0-33.0) pg 33.5 H MCHC (32.0-36.0) % 34.5 RDW (11.8-14.1) % 13.2 Plt Count (130-400) 10^3/uL 208 MPV (8.0-11.0) fL 10.2 Immature Gran % % 0.3 Neutrophils % % 65.8 Lymphocytes % % 17.4 Monocytes % % 11.2 Eosinophils % % 4.1 Basophils % % 1.2 Nucleated RBC % (0.0-0.3) % 0.0 Absolute Neutrophils (1.2-6.7) 10^3/uL 4.55 Absolute Lymphocytes (1.2-3.4) 10^3/uL 1.20 Absolute Monocytes (0.1-0.8) 10^3/uL 0.77 Absolute Eosinophils (0.0-0.7) 10^3/uL 0.28 Absolute Basophils (0.0-0.2) 10^3/uL 0.08 ESR (0-20) mm/hr 4 Sodium (136-145) mmol/L 135 L Potassium (3.5-5.1) mmol/L 4.9 Chloride (98-107) mmol/L 101 Carbon Dioxide (21.0-32.0) mmol/L 30.1 Anion Gap (3-11) mmol/L 3.9 BUN (7-18) mg/dL 9 Creatinine (0.70-1.30) mg/dL 1.1 Est GFR (CKD-EPI 2020) (mL/min/1.73m2) 74.50 Glucose (74-106) mg/dL 123 H Calcium (8.5-10.1) mg/dL 9.6 Magnesium (1.8-2.4) mg/dL 2.2 Total Bilirubin (0.2-1.0) mg/dL 0.4 AST (15-37) U/L 21 ALT (16-63) U/L 30 Alkaline Phosphatase (46-116) U/L 110 Troponin I (<or=76) ng/L 7 C-Reactive Protein (<or=0.5) mg/dL < 0.50 Total Protein (6.4-8.2) g/dL 7.3 Albumin (3.4-5.0) g/dL 3.8 Lipase (<78) U/L 74 TSH (0.36-3.74) uIU/mL 3.16 Ethyl Alcohol (<10) mg/dL < 3.0 PFSH All Active Problems (Updated 12/20/24 @ 22:15 by Milo Shankar MD) Shortness of breath (Acute) Sensory hearing loss, bilateral (Acute) Daily consumption of alcohol (Acute) Smoker (Acute) Oropharyngeal cancer (Acute) Unspecified injury of ear, initial encounter (Acute) Social History Smoking/Tobacco Use Status: Current every day Tobacco Type: cigarettes Smoking risk assessment performed?: Yes Alcohol Intake: current Alcohol Intake frequency: 0-2 drinks per day Alcohol type: beer Substance use type: former substance user and marijuana Housing: house Do you feel safe at home: Yes Do you feel safe in your relationship?: Yes
--- NOTE | 2025-01-16 11:15 | DI.MRI_ITS ---
Exam(s) MR BRAIN WO EXAM: MR BRAIN WO CLINICAL HISTORY: R common carotid occlusion TECHNIQUE: Multiplanar multisequence MRI of the brain was performed. COMPARISON: CT CT BRAIN NECK CTA from 01/16/2025 FINDINGS: The examination is limited due to patient motion artifact. VENTRICLES AND EXTRA AXIAL SPACES: Normal in size and morphology for the patient's age. MIDLINE SHIFT: None. CEREBRAL PARENCHYMA: No focus of restricted diffusion to suggest acute infarct. No space-occupying lesion identified. There are several areas of hyperintense signal seen on the T2 and FLAIR images in the white matter consistent with chronic microvascular ischemic disease. There is a old lacunar infarct in the left hgigins radiata. HEMORRHAGE: None. BRAINSTEM/CEREBELLUM: Normal. CALVARIUM: Normal. VISUALIZED PARANASAL SINUSES/MASTOIDS:Clear. [place] OF [place]: There is loss of the flow void in the right internal carotid artery. This may represent slow flow. The vessel is shown to be patent on the CT scan of the head and neck from earlier in the day. PITUITARY GLAND: Unremarkable. OTHER FINDINGS: None. IMPRESSION: 1. There is no evidence of an acute territorial infarct. 2. Old lacunar infarct in the left higgins radiata and chronic microvascular ischemic disease. DATA REPOSITORY:
[2025-01-16] MEDS: Aspirin 325 MG TAB PO (11:38)
--- NOTE | 2025-01-16 12:20 | DI.US_ITS ---
Exam(s) US CAROTID EXAM: US CAROTID CLINICAL HISTORY: R common carotid occlusion. TECHNIQUE: Ultrasound carotids performed using grayscale, color-flow, and spectral Doppler imaging. COMPARISON: CT CT BRAIN NECK CTA from 01/16/2025 MR MR BRAIN WO from 01/16/2025 FINDINGS: RIGHT CAROTID ARTERY: Plaque: Calcific plaque is present throughout. Velocity elevation: No discernible blood flow is seen in the right common carotid artery. Low velocity flow is seen in the carotid bulb and the proximal right ICA. Blood flow could not be obtained in the mid or distal right internal carotid artery. LEFT CAROTID ARTERY: Plaque: Calcific plaque is seen throughout. Velocity elevation: Yes. There is marked elevation of the velocities seen in the left common carotid artery. There is marked stenosis and atherosclerosis present. There is marked elevation of velocity in the mid left internal carotid artery. VERTEBRAL ARTERIES: Antegrade flow. Measurements: R Bulb: 23.3cm/s PS / 9.8cm/s ED R CCA: PS / ED R ECA: PS / ED R ICA Prox: 19.3cm/s PS / 5.9cm/s ED R ICA Mid: PS / ED R ICA Distal: PS / ED R Vert: 15.5cm/s PS / 0cm/s ED R SVR: R DVR: L Bulb: 127.6cm/s PS / 60.1cm/s ED L CCA: PS / 155.9cm/s ED L ECA: 142cm/s PS / 44cm/s ED L ICA Prox: 116.4cm/s PS / 49.5cm/s ED L ICA Mid: 425.2cm/s PS / 137.1cm/s ED L ICA Distal: 146.6cm/s PS / 53.8cm/s ED L Vert: 242.4cm/s PS / 98.2cm/s ED L SVR: 0.8 L DVR: 0.9 IMPRESSION: 1. Findings consistent with occlusion of the right common carotid artery. 2. Minimal blood flow is seen in the proximal right ICA and carotid bulb. These findings are consistent with the CT scan of the head and neck performed on the same day. 3. Marked stenosis seen in the left common carotid artery with marked elevation of the velocities noted. 4. Marked elevation of the left internal carotid artery consistent with near total occlusion. These findings are consistent with what was seen on the CT scan of the head and neck performed on the same day. Criteria for Carotid Stenosis: Normal: ICA PSV <125 cm/s no plaque or intimal thickening is visible. <50% stenosis: ICA PSV <125 cm/s and plaque or intimal thickening is visible. 50-69% stenosis: ICA PSV is 125-250 cm/s and plaque is visible. >70% stenosis to near occlusion: ICA PSV >250 cm/s with visible plaque and luminal narrowing. DATA REPOSITORY:
--- NOTE | 2025-01-16 16:44 | ED.PROG_ITS ---
Date of service: 01/16/25 Time of Service: 16:44 Medical Decision Making Care assumed from provider (BERHANE Dunbar) Please see their initial HPI, PE, and documentation. Discussed patient details and case and pending workup and disposition. Patient is hemodynamically stable, and alert and oriented. Upon my initial take over the patient informed by off going colleague that patient did go outside for a walk. Patient is ambulatory with steady gait department and back into his room. My colleague [facility] consult for bilateral severe carotid stenosis. 1646[place] [facility] [place].Transfer center to call me back in regards to capacity if transfer possible. 1747: Informed by event staff that patient would like to leave AGAINST MEDICAL ADVICE, he did sign the paperwork's and his IV was removed. I did speak with his visitor who is in the room. Will place patient on the care management list to assist him with getting a follow-up appointment with [facility] vascular surgery. Patient requesting to leave AMA. The patient appears clinically sober and is not under the influence of any known substances. Discussed risks and benefits with patient. Patient verbalizes understanding of situation and the risks of leaving including worsening condition, developing disability, including but not limited to . Discussed results of labs and imaging, if they were performed and recommendations for further treatment and/or observation. The patient verbalizes understanding of the results discussed. Every effort was made to involve family and situation discussed. At this time patient has opted to leave against medical advice. Patient is alert and oriented and has the capacity to make own decisions. This text was generated using [employer] system, please disregard any oddities of phrase or misspellings. Imaging Data Radiologic Study: Imaging: CT Scan Radiologist's impression: IMPRESSION: 1. Complete occlusion of the right common carotid artery through its entire length. There is reconstitution of the right internal carotid artery at the lev el of the carotid bifurcation. There is 80-90 percent stenosis of the proximal right internal carotid artery. 2. There is severe stenosis in the mid left common carotid artery. This measures approximately 3 cm in length. 3. No acute intracranial process. On MRI of the head may be obtained if there is continued concern for an acute infarct. 4. Atherosclerotic calcification of the cavernous portions of the internal carotid arteries is seen bilaterally. No significant stenosis is present. Radiologic Study #2: Imaging: MRI Radiologist's impression: FINDINGS: The examination is limited due to patient motion artifact. VENTRICLES AND EXTRA AXIAL SPACES: Normal in size and morphology for the patient's age. MIDLINE SHIFT: None. CEREBRAL PARENCHYMA: No focus of restricted diffusion to suggest acute infarct. No space-occupying lesion identified. There are several areas of hyperintense signal seen on the T2 and FLAIR images in the white matter consistent with chronic microvascular ischemic disease. There is a old lacunar infarct in the left higgins radiata. HEMORRHAGE: None. BRAINSTEM/CEREBELLUM: Normal. CALVARIUM: Normal. VISUALIZED PARANASAL SINUSES/MASTOIDS:Clear. [place] OF [place]: There is loss of the flow void in the right internal carotid artery. This may represent slow flow. The vessel is shown to be patent on the CT scan of the head and neck from earlier in the day. PITUITARY GLAND: Unremarkable. OTHER FINDINGS: None. IMPRESSION: 1. There is no evidence of an acute territorial infarct. 2. Old lacunar infarct in the left higgins radiata and chronic microvascular ischemic disease. Lab Data Lab results reviewed: Yes I reviewed the patient's lab results. Labs: Laboratory Tests Range/Units 01/16/25 01/16/25 09:05 10:12 WBC (4.4-10.8) 10^3/uL 6.90 RBC (4.36-5.78) 10^6/uL 4.51 Hgb (13.5-17.5) g/dL 15.1 Hct (40.0-50.0) % 43.8 MCV (80-95) fL 97 H MCH (27.0-33.0) pg 33.5 H MCHC (32.0-36.0) % 34.5 RDW (11.8-14.1) % 13.2 Plt Count (130-400) 10^3/uL 208 MPV (8.0-11.0) fL 10.2 Immature Gran % % 0.3 Neutrophils % % 65.8 Lymphocytes % % 17.4 Monocytes % % 11.2 Eosinophils % % 4.1 Basophils % % 1.2 Nucleated RBC % (0.0-0.3) % 0.0 Absolute Neutrophils (1.2-6.7) 10^3/uL 4.55 Absolute Lymphocytes (1.2-3.4) 10^3/uL 1.20 Absolute Monocytes (0.1-0.8) 10^3/uL 0.77 Absolute Eosinophils (0.0-0.7) 10^3/uL 0.28 Absolute Basophils (0.0-0.2) 10^3/uL 0.08 ESR (0-20) mm/hr 4 Sodium (136-145) mmol/L 135 L Potassium (3.5-5.1) mmol/L 4.9 Chloride (98-107) mmol/L 101 Carbon Dioxide (21.0-32.0) mmol/L 30.1 Anion Gap (3-11) mmol/L 3.9 BUN (7-18) mg/dL 9 Creatinine (0.70-1.30) mg/dL 1.1 Est GFR (CKD-EPI 2020) (mL/min/1.73m2) 74.50 Glucose (74-106) mg/dL 123 H Calcium (8.5-10.1) mg/dL 9.6 Magnesium (1.8-2.4) mg/dL 2.2 Total Bilirubin (0.2-1.0) mg/dL 0.4 AST (15-37) U/L 21 ALT (16-63) U/L 30 Alkaline Phosphatase (46-116) U/L 110 Troponin I (<or=76) ng/L 7 C-Reactive Protein (<or=0.5) mg/dL < 0.50 Total Protein (6.4-8.2) g/dL 7.3 Albumin (3.4-5.0) g/dL 3.8 Lipase (<78) U/L 74 TSH (0.36-3.74) uIU/mL 3.16 Urine Color (Yellow) Yellow Urine Clarity (Clear) Sl Cloudy Urine pH (5-8) 6.5 Ur Specific [place] (1.005-1.025) 1.010 Urine Protein (Neg-Trace) mg/dL Negative Urine Ketones (Negative) mg/dL Negative Urine Blood (Negative) Negative Urine Nitrite (Negative) Negative Urine Bilirubin (Negative) Negative Urine Urobilinogen (Up to 0.2) mg/dL 0.2 Ur Leukocyte Esterase (Negative) Negative Urine Glucose (Negative) mg/dL Negative Ethyl Alcohol (<10) mg/dL < 3.0 Discharge Plan Disposition Patient Disposition: Against Medical Advice Condition: Serious Discharge Details Clinical Impression: Carotid stenosis, bilateral, Frequent falls Primary Care Provider: Edyta Dee ED Provider: Arsen Almanzar Home Meds and New Rx's Prescriptions: Continued cyclobenzaprine 10 mg tablet 10 mg PO TID PRN Patient Comments: TAKE ONE TABLET BY MOUTH THREE TIMES A DAY NEEDED triamcinolone acetonide 0.5 % cream 1 applic TOPICAL BID PRN Patient Comments: APPLY TOPICALLY TO AFFECTED AREA(S) TWO TIMES A DAY NEEDED metoprolol succinate 50 mg tablet extended release 24 hr 50 mg PO DAILY Patient Comments: TAKE ONE TABLET BY MOUTH EVERY DAY meloxicam 7.5 mg tablet 7.5 mg PO BID PRN Patient Comments: TAKE ONE TABLET BY MOUTH TWICE A DAY NEEDED tamsulosin 0.4 mg capsule 0.8 mg PO DAILY Patient Comments: TAKE TWO CAPSULES BY MOUTH EVERY DAY hydrochlorothiazide 25 mg tablet 25 mg PO DAILY Patient Comments: TAKE ONE TABLET BY MOUTH EVERY DAY finasteride 5 mg tablet 5 mg PO DAILY Discharge Instructions Instructions: Carotid Artery Stenosis (DC), Preventing falls in adults Additional Instructions: At this time you have opted to leave AGAINST MEDICAL ADVICE. Please be aware that this could result in further worsening of your condition up to not including disability and/or . The recommendation to me was to attempt to get you transferred to [facility] to be seen by vascular surgery. It appears you have severe carotid stenosis on both sides of your carotid arteries which could be attributing to your falls. You were placed on a care management list to assist you in getting a follow-up appointment with the [facility] vascular surgery. Follow up with primary care provider in 3-5 days. Return to ED sooner if any worsening or concerns. Please consider taking a daily aspirin chewable 81 mg daily and please continue taking your previously prescribed medications. Referrals: [facility] [place], [place] - 1 week Referral Note: Care management to contact you to get an expedited appointment Clinical Impression: Frequent falls; Carotid stenosis, bilateral Edyta Dee [Primary Care Provider] - 3 days
== END 2025-01-16 17:52 | disposition left against medical advice (07) ==
PROVIDERS: Emergency Provider Physician Assistant; PCP Internal Medicine
DX: R42 Dizziness and giddiness (principal); H53.9 Unspecified visual disturbance; I65.21 Occlusion and stenosis of right carotid artery; I16.1 Hypertensive emergency; I10 Essential (primary) hypertension; R29.6 Repeated falls; F17.210 Nicotine dependence, cigarettes, uncomplicated; Z53.29 Procedure and treatment not carried out because of patient's decision for other reasons
CPT/HCPCS: 00123; 36415; 70496; 70498; 80053; 83690; 85652; 93005; 99285; 70551; 71046; 80320; 81003; 83735; 84443; 84484; 85025; 86140; 93010; 93880; J3490